=== PATIENT | male | born 1975 | race Two or more races ===

== ENCOUNTER 2018-06-19 20:06 | Emergency (ER) | payer OTHER ==
--- NOTE | 2018-06-19 21:14 | ED PDOC ---
HPI: Psych/Substance Abuse Time Seen by Provider: 06/19/18 20:31 Chief Complaint (Nursing): Alcohol Ingestion Chief Complaint (Provider): Alcohol Ingestion ED Caveat: Intoxicated History/Exam Limitations: intoxication Onset/Duration Of Symptoms: Hrs Current Symptoms Are (Timing): Still Present Modifying Factor(s): Alcohol Additional History Per: EMS Additional Complaint(s): 43 y/o male was brought to the ED via EMS for public intoxication and unsteady gait. Provider is currently unable to obtain patient's history in the ED due to the patients intoxicated state. PMD: none provided Past Medical History Reviewed: Historical Data, Nursing Documentation, Vital Signs Vital Signs: Last Vital Signs Temp 98 F 06/19/18 20:08 Pulse 114 H 06/19/18 21:00 Resp 19 06/19/18 21:00 BP 128/84 06/19/18 21:00 Pulse Ox 100 06/19/18 21:00 - Medical History PMH: No Chronic Diseases - Family History Family History: States: Unknown Family Hx - Allergies Allergies/Adverse Reactions: Allergies Allergy/AdvReac Type Severity Reaction Status Date / Time Unobtainable Allergy Verified 06/19/18 20:08 Review of Systems Review Of Systems: ROS cannot be obtained secondary to pt's inabilty to answer questions. Physical Exam - Reviewed Nursing Documentation Reviewed: Yes Vital Signs Reviewed: Yes - Physical Exam Appears: Positive for: Non-toxic Head Exam: Positive for: ATRAUMATIC, NORMAL INSPECTION, NORMOCEPHALIC Skin: Positive for: Normal Color, Warm, Dry. Negative for: Rash Eye Exam: Positive for: EOMI, Normal appearance, PERRL ENT: Positive for: Normal ENT Inspection Neck: Positive for: Normal, Painless ROM, Supple. Negative for: Decreased ROM Cardiovascular/Chest: Positive for: Regular Rate, Rhythm. Negative for: Murmur Respiratory: Positive for: Normal Breath Sounds. Negative for: Decreased Breath Sounds, Wheezing, Respiratory Distress Gastrointestinal/Abdominal: Positive for: Normal Exam, Soft. Negative for: Tenderness, Guarding Extremity: Positive for: Normal ROM. Negative for: Tenderness, Pedal Edema, Deformity Neurologic/Psych: Positive for: Alert, Oriented (x1), Gait (unsteady), Other (disruptive, slurry speech, visually intoxicated ) - ECG O2 Sat by Pulse Oximetry: 100 (RA) Pulse Ox Interpretation: Normal Medical Decision Making Medical Decision Making: Time: 2100 A/P: 43 year old male with intoxication and no significant trauma. Patient is danger to self/other and placed on chemical and physical restraints. Will monitor for sobriety Plan: Alcohol serum Ativan 2mg Haldol 5mg secured entrance monitor 1:1 observation Glucose, blood POC Restraint: violent or harm to self/other as ordered Reevaluation 2235 Patient trying to get out of bed, nearly falling and injuring himself 50mg of bendaryl IM given for adequate sedation Restrains replaced for patient's safety 0445 Patient is awake, alert, steady gait Stable for discharge ------- Scribe Attestation: Documented by Dominick Meade, acting as a scribe for Duy Smiley MD Provider Scribe Attestation: All medical record entries made by the Scribe were at my direction and personally dictated by me. I have reviewed the chart and agree that the record accurately reflects my personal performance of the history, physical exam, medical decision making, and the department course for this patient. I have also personally directed, reviewed, and agree with the discharge instructions and disposition. Disposition - Clinical Impression Clinical Impression: Alcohol abuse - Disposition Referrals: Alcoholics Anonymous [Outside] Disposition: Routine/Home Disposition Time: 04:30 Condition: STABLE Instructions: Alcohol Use - When Is Drinking a Problem? 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
[2018-06-19 21:27] VITALS: BP 136/94
[2018-06-19] MEDS ORDERED: DiphenhydrAMINE 50 mg/ml Inj IM STA (22:31)
[2018-06-19] MEDS ORDERED: DiphenhydrAMINE 50 mg/ml Inj ONE (23:08)
[2018-06-20 00:29] VITALS: TEMP 98
[2018-06-20 04:55] VITALS: PULSE 92; RESP 17; O2SAT 100
== END 2018-06-20 04:53 | disposition home or self-care (01) ==
LOC: MERGE 20:06 → H.ER 20:06 → EDBD 20:06 → H.ER 06-20 04:53
DX: F10.10 Alcohol abuse, uncomplicated (principal)
CPT/HCPCS: 80320; 82948; 96372; 99285; J1630; J2060